=== PATIENT | male | born 2000 | race Caucasian/White ===

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

== ENCOUNTER → 2019-01-01 | Outpatient (CLI) | payer OTHER | END | disposition home or self-care (01) | LOC: WOUNDCARE 00:27 | DX: S81.011D Laceration without foreign body, right knee, subsequent encounter (principal); F17.290 Nicotine dependence, other tobacco product, uncomplicated; V86.05XD Driver of 3- or 4- wheeled all-terrain vehicle (ATV) injured in traffic accident, subsequent encounter ==

== ENCOUNTER 2019-01-18 11:09 | Emergency (ER) | payer OTHER ==
[~2019-01-18] VITALS: Ht 175.2 cm; Wt 80.7 kg
== END 2019-01-18 11:19 | disposition home or self-care (01) ==
LOC: ED 11:09
DX: S01.01XD Laceration without foreign body of scalp, subsequent encounter (principal); Z79.2 Long term (current) use of antibiotics; V84.5XXD Driver of special agricultural vehicle injured in nontraffic accident, subsequent encounter

== ENCOUNTER 2021-01-11 22:36 | Emergency (ER) | payer OTHER ==
[~2021-01-11] VITALS: Ht 175.2 cm; Wt 99.8 kg
[2021-01-11 23:18] LABS: BILIRUBIN Negative (Negative); BLOOD Negative (Negative); CLARITY Cloudy (Clear); COLOR Yellow (Yellow); GLUCOSE Negative (Negative); KETONE Trace (Negative); LEUKO ESTERASE Negative (Negative); NITRITE Negative (Negative); SPECIFIC GRAVITY 1.025 (1.001-1.030)
[2021-01-11 23:32] LABS: RBC 0-2 rbc/hpf (0-2); WBC 0-2 wbc/hpf (0-5)
== END 2021-01-11 23:56 | disposition home or self-care (01) ==
LOC: ED 22:36
PROVIDERS: Physician Assistant
DX: N48.89 Other specified disorders of penis (principal); Z79.899 Other long term (current) drug therapy

== ENCOUNTER 2022-01-22 15:15 | Emergency (ER) | payer SELFPAY ==
[~2022-01-22] VITALS: Wt 93.4 kg
[2022-01-22] MEDS ORDERED: PREDNISONE10 MG PO (15:45)
== END 2022-01-22 15:56 | disposition home or self-care (01) ==
LOC: ED 15:15
DX: L23.7 Allergic contact dermatitis due to plants, except food (principal)

== ENCOUNTER 2022-06-18 21:47 | Emergency (ER) | payer OTHER, MEDICAID ==
[~2022-06-18] VITALS: Ht 175.2 cm; Wt 99.8 kg
[~2022-06-18 21:47] MED LIST changes: +PREDNISONE10 MG PO
[2022-06-18] MEDS ORDERED: NAPROXEN250 MG PO (22:40)
== END 2022-06-18 22:49 | disposition home or self-care (01) ==
LOC: ED 21:47
DX: G89.29 Other chronic pain (principal); M25.561 Pain in right knee; M25.562 Pain in left knee

== ENCOUNTER 2022-07-23 00:05 | Emergency (ER) | payer MEDICAID ==
[~2022-07-23] VITALS: Ht 177.8 cm; Wt 95.3 kg
[~2022-07-23 00:05] MED LIST changes: +NAPROXEN250 MG PO
== END 2022-07-23 02:13 | disposition home or self-care (01) ==
LOC: ED 00:05
DX: I95.1 Orthostatic hypotension (principal); F10.90 Alcohol use, unspecified, uncomplicated

== ENCOUNTER 2022-07-24 17:02 | Emergency (ER) | payer MEDICAID ==
[~2022-07-24] VITALS: Ht 175.2 cm; Wt 102.1 kg
[2022-07-24 17:57] LABS: BASO % 0.7 % (0.0-1.0); EOS # 0.2 10*3/uL (0.0-0.4); EOS % 4.1 % (1.0-4.0); HEMATOCRIT 47.4 % (42.0-52.0); LYMPH # 1.8 10*3/uL (1.3-4.4); LYMPH % 30.8 % (27.0-41.0); MEAN CELL VOLUME 88.4 fl (80.0-94.0); MEAN CORPUSCULAR HGB 30.4 pg (27.0-31.0); MEAN CORPUSCULAR HGB CONC 34.4 g/dl (33.0-37.0); MEAN PLATELET VOLUME 9.2 fl (9.6-12.3); MONO # 0.5 10*3/uL (0.1-1.0); NEUT # 3.3 10*3/uL (2.3-7.9); NEUT % 56.2 % (47.0-73.0); PLATELET COUNT AUTOMATED 260 10*3/uL (130-400); RED BLOOD COUNT 5.36 10*6/uL (4.50-5.90); RED CELL DISTRI WIDTH 12.4 % (0-14.5); WHITE BLOOD COUNT 5.9 10*3/uL (4.8-10.8)
[2022-07-24 18:11] LABS: ALKALINE PHOSPHATASE 58 U/L (46-116); BUN 14 mg/dl (9-23); CHLORIDE 102 mmol/L (98-107); POTASSIUM 4.1 mmol/L (3.4-5.1); SGPT/ALT 78 U/L (10-49); TOTAL PROTEIN 7.5 gm/dL (6.0-8.0)
== END 2022-07-24 18:25 | disposition home or self-care (01) ==
LOC: ED 17:02
PROVIDERS: Nurse Practitioner Family
DX: I10 Essential (primary) hypertension (principal); F10.90 Alcohol use, unspecified, uncomplicated

== ENCOUNTER 2022-10-16 16:10 | Emergency (ER) | payer MEDICAID ==
[~2022-10-16] VITALS: Ht 175.2 cm; Wt 96.6 kg
[2022-10-16 16:59] LABS: BASO % 0.2 % (0.0-1.0); EOS # 0.1 10*3/uL (0.0-0.4); EOS % 1.3 % (1.0-4.0); HEMATOCRIT 48.9 % (42.0-52.0); LYMPH # 0.4 10*3/uL (1.3-4.4); LYMPH % 3.8 % (27.0-41.0); MEAN CELL VOLUME 88.6 fl (80.0-94.0); MEAN CORPUSCULAR HGB 30.6 pg (27.0-31.0); MEAN CORPUSCULAR HGB CONC 34.6 g/dl (33.0-37.0); MEAN PLATELET VOLUME 9.5 fl (9.6-12.3); MONO # 0.6 10*3/uL (0.1-1.0); MONO % 5.4 % (3.0-9.0); NEUT # 9.6 10*3/uL (2.3-7.9); NEUT % 88.9 % (47.0-73.0); PLATELET COUNT AUTOMATED 237 10*3/uL (130-400); RED BLOOD COUNT 5.52 10*6/uL (4.50-5.90); RED CELL DISTRI WIDTH 12.4 % (0-14.5); WHITE BLOOD COUNT 10.8 10*3/uL (4.8-10.8)
[2022-10-16 17:08] LABS: BILIRUBIN Negative (Negative); BLOOD Negative (Negative); CLARITY Clear (Clear); COLOR Yellow (Yellow); GLUCOSE Negative (Negative); KETONE Negative (Negative); LEUKO ESTERASE Negative (Negative); NITRITE Negative (Negative); PH 6.5 (4.5-8.0); SPECIFIC GRAVITY 1.025 (1.001-1.030)
[2022-10-16 17:16] LABS: ALKALINE PHOSPHATASE 63 U/L (46-116); BUN 10 mg/dl (9-23); CHLORIDE 103 mmol/L (98-107); LIPASE 30 U/L (12-53); SGPT/ALT 29 U/L (10-49); TOTAL PROTEIN 7.5 gm/dL (6.0-8.0)
[2022-10-16 17:26] LABS: RBC 0-2 rbc/hpf (0-2); WBC 0-2 wbc/hpf (0-5)
[2022-10-16] MEDS ORDERED: TOPCARE OMEPRAZ20 MG PO (19:41)
== END 2022-10-16 19:44 | disposition home or self-care (01) ==
LOC: ED 16:10
PROVIDERS: Physician Assistant
DX: R10.32 Left lower quadrant pain (principal); F31.9 Bipolar disorder, unspecified

== ENCOUNTER 2022-12-12 18:14 | Inpatient (IN) | payer OTHER ==
[~2022-12-12] VITALS: Ht 175.3 cm; Wt 92.1 kg
[~2022-12-12 18:14] MED LIST changes: +TOPCARE OMEPRAZ20 MG PO
[2022-12-12 18:21] VITALS: BP 135/90
[2022-12-12 18:44] LABS: BASO % 0.2 % (0.0-1.0); EOS % 0.1 % (1.0-4.0); HEMATOCRIT 46.9 % (42.0-52.0); LYMPH # 0.7 10*3/uL (1.3-4.4); LYMPH % 3.7 % (27.0-41.0); MEAN CELL VOLUME 88.8 fl (80.0-94.0); MEAN CORPUSCULAR HGB 30.7 pg (27.0-31.0); MEAN CORPUSCULAR HGB CONC 34.5 g/dl (33.0-37.0); MONO # 1.2 10*3/uL (0.1-1.0); MONO % 6.2 % (3.0-9.0); NEUT # 17.2 10*3/uL (2.3-7.9); NEUT % 89.4 % (47.0-73.0); PLATELET COUNT AUTOMATED 249 10*3/uL (130-400); RED BLOOD COUNT 5.28 10*6/uL (4.50-5.90); RED CELL DISTRI WIDTH 12.8 % (0-14.5); WHITE BLOOD COUNT 19.3 10*3/uL (4.8-10.8)
[2022-12-12 19:02] LABS: ALKALINE PHOSPHATASE 65 U/L (46-116); BUN 7 mg/dl (9-23); CHLORIDE 101 mmol/L (98-107); LIPASE 27 U/L (12-53); POTASSIUM 3.9 mmol/L (3.4-5.1); SGPT/ALT 22 U/L (10-49); TOTAL PROTEIN 7.5 gm/dL (6.0-8.0)
[2022-12-12 19:05] LABS: BILIRUBIN Negative (Negative); BLOOD Negative (Negative); CLARITY Clear (Clear); COLOR Yellow (Yellow); GLUCOSE Negative (Negative); KETONE 2+ (Negative); LEUKO ESTERASE Negative (Negative); NITRITE Negative (Negative)
[2022-12-12 19:10] LABS: BACTERIA TRACE; EPITHELIAL CELLS 0-2; RBC 0-2 rbc/hpf (0-2); WBC 0-2 wbc/hpf (0-5)
[2022-12-12 19:46] VITALS: BP 130/90
[2022-12-12 23:12] VITALS: BP 130/78
[2022-12-13] VITALS (8 sets, daily range): BP systolic 114–143; BP diastolic 63–90
[2022-12-13 07:29] LABS: BASO % 0.3 % (0.0-1.0); EOS # 0.1 10*3/uL (0.0-0.4); HEMATOCRIT 39.7 % (42.0-52.0); LYMPH # 1.5 10*3/uL (1.3-4.4); LYMPH % 11.7 % (27.0-41.0); MEAN CELL VOLUME 88.8 fl (80.0-94.0); MEAN CORPUSCULAR HGB 30.9 pg (27.0-31.0); MEAN CORPUSCULAR HGB CONC 34.8 g/dl (33.0-37.0); MEAN PLATELET VOLUME 9.6 fl (9.6-12.3); MONO # 1.2 10*3/uL (0.1-1.0); MONO % 9.6 % (3.0-9.0); NEUT # 9.7 10*3/uL (2.3-7.9); PLATELET COUNT AUTOMATED 201 10*3/uL (130-400); RED BLOOD COUNT 4.47 10*6/uL (4.50-5.90); RED CELL DISTRI WIDTH 12.8 % (0-14.5); WHITE BLOOD COUNT 12.6 10*3/uL (4.8-10.8)
[2022-12-13 08:00] LABS: ALKALINE PHOSPHATASE 50 U/L (46-116); BUN 5 mg/dl (9-23); CHLORIDE 109 mmol/L (98-107); CHOLESTEROL 97 mg/dL (<200); LDL CHOLESTEROL 53 mg/dL (9-159); POTASSIUM 3.7 mmol/L (3.4-5.1); SGPT/ALT 17 U/L (10-49); THYROID STIM HORMONE (HS) 1.077 uIU/ml (0.550-4.780); TOTAL PROTEIN 6.1 gm/dL (6.0-8.0); TRIGLYCERIDES 55 mg/dl (<150)
[2022-12-13 17:32] LABS: CSF GLUCOSE 69 mg/dL (40-80); CSF TOTAL PROTEIN 51.9 mg/dL (15-45)
[2022-12-13 17:56] LABS: CSF RBC < 1000 /uL; CSF WBC 6 /uL
[2022-12-13 19:00] LABS: CLARITY CLEAR; COLOR COLORLESS
[2022-12-13 19:04] LABS: CSF LYMPHOCYTES 75 % (40-80); CSF MONOCYTES 25 % (15-45)
[2022-12-14] VITALS: BP 135/80
[2022-12-14 08:00] VITALS: BP 111/60
[2022-12-14 09:04] LABS: BASO # 0.1 10*3/uL (0.0-0.1); BASO % 0.5 % (0.0-1.0); EOS # 0.6 10*3/uL (0.0-0.4); EOS % 5.7 % (1.0-4.0); HEMATOCRIT 44.8 % (42.0-52.0); LYMPH # 2.1 10*3/uL (1.3-4.4); LYMPH % 21.1 % (27.0-41.0); MEAN CELL VOLUME 91.4 fl (80.0-94.0); MEAN CORPUSCULAR HGB CONC 33.9 g/dl (33.0-37.0); MEAN PLATELET VOLUME 9.8 fl (9.6-12.3); MONO # 1.2 10*3/uL (0.1-1.0); MONO % 12.2 % (3.0-9.0); NEUT % 60.3 % (47.0-73.0); PLATELET COUNT AUTOMATED 226 10*3/uL (130-400); RED CELL DISTRI WIDTH 13.1 % (0-14.5); WHITE BLOOD COUNT 9.9 10*3/uL (4.8-10.8)
[2022-12-14 09:25] LABS: ALKALINE PHOSPHATASE 56 U/L (46-116); CHLORIDE 106 mmol/L (98-107); POTASSIUM 4.1 mmol/L (3.4-5.1); SGPT/ALT 23 U/L (10-49); TOTAL PROTEIN 6.9 gm/dL (6.0-8.0)
[2022-12-14 09:26] LABS: BUN < 5 mg/dl (9-23)
[2022-12-14 12:00] VITALS: BP 128/73
[2022-12-14 16:00] VITALS: BP 128/74
[2022-12-14] MEDS ORDERED: DOXYCYCLINE MO100 MG PO (17:42)
[2022-12-14 20:00] VITALS: BP 128/70
[2022-12-15] VITALS: BP 129/67
[2022-12-15 06:08] LABS: HBSAG Negative (Negative); HEP B CORE AB, IGM Negative (Negative); HEPATITIS C ANTIBODY Non Reactive (Non Reactive)
[2022-12-15 08:00] VITALS: BP 105/49
[2022-12-15 08:26] LABS: BUN 7 mg/dl (9-23); CHLORIDE 103 mmol/L (98-107); POTASSIUM 3.5 mmol/L (3.4-5.1)
== END 2022-12-15 12:15 | disposition home or self-care (01) | DRG 720 ==
LOC: ED 18:14 → 5E 12-13 01:39 → EDHOLD 12-13 01:39 → 5E 12-13 17:07
PROVIDERS: Emergency Medicine; Family Medicine; Internal Medicine Infectious Disease; Occupational Therapist; Student in an Organized Health Care Education/Training Program; ADMIT Internal Medicine; ATTEND Internal Medicine
PROC: 009U3ZX Drainage of Spinal Canal, Percutaneous Approach, Diagnostic (ICD-10-PCS; principal; 2022-12-13)
DX: A41.9 Sepsis, unspecified organism (principal); I10 Essential (primary) hypertension; Z71.6 Tobacco abuse counseling; R73.9 Hyperglycemia, unspecified; E87.1 Hypo-osmolality and hyponatremia; F17.200 Nicotine dependence, unspecified, uncomplicated; G03.9 Meningitis, unspecified

== ENCOUNTER 2023-02-23 13:51 | Emergency (ER) | payer OTHER ==
[~2023-02-23 13:51] MED LIST changes: +BACITRACIN28.4 GM TD; +CEPHALEXIN500 M1 PO; +DOXYCYCLINE MO100 MG PO; +XEROFORM PETRO1 EAC2 T
[2023-02-23] MEDS ORDERED: VIBRAMYCIN100 MG PO (14:44)
[2023-02-23 15:49] LABS: BILIRUBIN 1+ (Negative); BLOOD Negative (Negative); CLARITY Clear (Clear); COLOR Dark Yellow (Yellow); GLUCOSE Negative (Negative); KETONE Trace (Negative); LEUKO ESTERASE Negative (Negative); NITRITE Negative (Negative); PH 5.5 (4.5-8.0); SPECIFIC GRAVITY >= 1.030 (1.001-1.030)
[2023-02-23 16:02] LABS: BACTERIA TRACE; CALCIUM OXALATE CRYSTALS Trace; RBC 0-2 rbc/hpf (0-2); WBC 0-2 wbc/hpf (0-5)
== END 2023-02-23 16:20 | disposition home or self-care (01) ==
LOC: ED 13:51
PROVIDERS: Physician Assistant
DX: Z20.2 Contact with and (suspected) exposure to infections with a predominantly sexual mode of transmission (principal); R30.0 Dysuria; F90.9 Attention-deficit hyperactivity disorder, unspecified type; F31.9 Bipolar disorder, unspecified

== ENCOUNTER 2023-03-17 02:48 | Emergency (ER) | payer OTHER ==
[~2023-03-17] VITALS: Ht 175.2 cm; Wt 90.7 kg
[~2023-03-17 02:48] MED LIST changes: +VIBRAMYCIN100 MG PO
[2023-03-17] MEDS ORDERED: ZITHROMAX250 MG PO (04:25)
[2023-03-17] MEDS ORDERED: PREDNISONE20 M1 PO (04:25)
== END 2023-03-17 04:31 | disposition home or self-care (01) ==
LOC: ED 02:48
DX: J06.9 Acute upper respiratory infection, unspecified (principal); F90.9 Attention-deficit hyperactivity disorder, unspecified type; F31.9 Bipolar disorder, unspecified; F17.200 Nicotine dependence, unspecified, uncomplicated; Z20.822 Contact with and (suspected) exposure to COVID-19

== ENCOUNTER → 2023-11-21 | Outpatient (CLI) | payer OTHER ==
[~2023-11-21] MED LIST changes: +PREDNISONE20 M1 PO; +ZITHROMAX250 MG PO
[2023-11-21 13:15] LABS: BASO % 0.4 % (0.0-1.0); EOS # 0.3 10*3/uL (0.0-0.4); EOS % 3.7 % (1.0-4.0); HEMATOCRIT 48.1 % (42.0-52.0); LYMPH # 1.9 10*3/uL (1.3-4.4); LYMPH % 27.2 % (27.0-41.0); MEAN CELL VOLUME 91.8 fl (80.0-94.0); MEAN CORPUSCULAR HGB 30.9 pg (27.0-31.0); MEAN CORPUSCULAR HGB CONC 33.7 g/dl (33.0-37.0); MEAN PLATELET VOLUME 9.2 fl (9.6-12.3); MONO # 0.5 10*3/uL (0.1-1.0); MONO % 7.6 % (3.0-9.0); NEUT # 4.2 10*3/uL (2.3-7.9); NEUT % 60.8 % (47.0-73.0); PLATELET COUNT AUTOMATED 266 10*3/uL (130-400); RED BLOOD COUNT 5.24 10*6/uL (4.50-5.90); WHITE BLOOD COUNT 6.8 10*3/uL (4.8-10.8)
[2023-11-21 13:45] LABS: ALKALINE PHOSPHATASE 55 U/L (46-116); BUN 8 mg/dl (9-23); CHLORIDE 103 mmol/L (98-107); CHOLESTEROL 150 mg/dL (<200); LDL CHOLESTEROL 87 mg/dL (9-159); POTASSIUM 4.3 mmol/L (3.4-5.1); SGPT/ALT 24 U/L (5-49); TOTAL PROTEIN 7.4 gm/dL (6.0-8.0); TRIGLYCERIDES 93 mg/dl (<150)
== END ==
LOC: LAB 12:46
PROVIDERS: ATTEND Nurse Practitioner Family
DX: Z13.29 Encounter for screening for other suspected endocrine disorder (principal); I10 Essential (primary) hypertension; F31.9 Bipolar disorder, unspecified; Z13.1 Encounter for screening for diabetes mellitus

== ENCOUNTER 2023-12-08 23:04 | Emergency (ER) | payer OTHER ==
[~2023-12-08] VITALS: Ht 154.9 cm; Wt 94.3 kg
[2023-12-08 23:16] LABS: BASO % 0.3 % (0.0-1.0); EOS # 0.5 10*3/uL (0.0-0.4); EOS % 6.7 % (1.0-4.0); HEMATOCRIT 44.8 % (42.0-52.0); LYMPH # 2.5 10*3/uL (1.3-4.4); LYMPH % 33.4 % (27.0-41.0); MEAN CELL VOLUME 91.4 fl (80.0-94.0); MEAN CORPUSCULAR HGB 30.6 pg (27.0-31.0); MEAN CORPUSCULAR HGB CONC 33.5 g/dl (33.0-37.0); MEAN PLATELET VOLUME 9.6 fl (9.6-12.3); MONO # 0.7 10*3/uL (0.1-1.0); MONO % 9.6 % (3.0-9.0); NEUT # 3.7 10*3/uL (2.3-7.9); NEUT % 49.9 % (47.0-73.0); PLATELET COUNT AUTOMATED 271 10*3/uL (130-400); RED CELL DISTRI WIDTH 12.9 % (0-14.5); WHITE BLOOD COUNT 7.4 10*3/uL (4.8-10.8)
[2023-12-08] MEDS ORDERED: CYCLOBENZAPRINE10 MG PO (23:21)
[2023-12-08] MEDS ORDERED: METHOCARBAMOL500 M1 PO (23:22)
[2023-12-08 23:27] LABS: ACT PARTIAL THROMBO TIME 26.8 SECONDS (20.0-32.1)
[2023-12-08 23:35] LABS: ALKALINE PHOSPHATASE 56 U/L (46-116); BUN 10 mg/dl (9-23); CHLORIDE 107 mmol/L (98-107); POTASSIUM 3.6 mmol/L (3.4-5.1); SGPT/ALT 15 U/L (5-49); TOTAL PROTEIN 6.8 gm/dL (6.0-8.0)
[2023-12-09 00:59] LABS: BILIRUBIN Negative (Negative); BLOOD Negative (Negative); CLARITY Turbid (Clear); COLOR Yellow (Yellow); GLUCOSE Negative (Negative); KETONE Negative (Negative); LEUKO ESTERASE Negative (Negative); NITRITE Negative (Negative); PH 7.5 (4.5-8.0)
[2023-12-09 01:06] LABS: URINE AMPHETAMINES Negative (1000ng/ml); URINE BARBITURATES Negative (200ng/ml); URINE BENZODIAZEPINES Negative (200ng/ml); URINE CANNABINOIDS (THC) Negative (50ng/ml); URINE COCAINE Negative (300ng/ml); URINE METHADONE Negative (300ng/ml); URINE OPIATES Negative (300ng/ml); URINE PHENCYCLIDINE Negative (25ng/ml)
[2023-12-09 01:26] LABS: BACTERIA 1+; RBC 0-2 rbc/hpf (0-2); WBC 0-2 wbc/hpf (0-5)
== END 2023-12-09 00:57 | disposition left against medical advice (07) ==
LOC: ED 23:04
PROVIDERS: Internal Medicine
DX: R07.89 Other chest pain (principal); R42 Dizziness and giddiness; R11.0 Nausea; M79.602 Pain in left arm; F31.9 Bipolar disorder, unspecified; F90.9 Attention-deficit hyperactivity disorder, unspecified type; Z53.29 Procedure and treatment not carried out because of patient's decision for other reasons

== ENCOUNTER 2024-01-06 14:13 | Emergency (ER) | payer OTHER ==
[~2024-01-06] VITALS: Ht 175.2 cm; Wt 85.7 kg
[~2024-01-06 14:13] MED LIST changes: +CYCLOBENZAPRINE10 MG PO; +METHOCARBAMOL500 M1 PO
[2024-01-06] MEDS ORDERED: Ketorolac Tromethamine 15 MG/ML VIAL IV ONE (14:35)
[2024-01-06] MEDS ORDERED: MORPHINE Sulfate 2 MG/ML SYR IV PRN (14:35)
[2024-01-06] MEDS ORDERED: Ondansetron Hydrochloride 4 MG/2 ML VIAL IV ONE (14:35)
[2024-01-06] MEDS ORDERED: SODIUM CHLORIDE 0.9% 1,000 ML IV ONE (14:35)
[2024-01-06 14:51] LABS: BASO % 0.5 % (0.0-1.0); EOS # 0.3 10*3/uL (0.0-0.4); EOS % 5.7 % (1.0-4.0); HEMATOCRIT 47.4 % (42.0-52.0); LYMPH # 1.4 10*3/uL (1.3-4.4); MEAN CELL VOLUME 91.2 fl (80.0-94.0); MEAN CORPUSCULAR HGB 30.8 pg (27.0-31.0); MEAN CORPUSCULAR HGB CONC 33.8 g/dl (33.0-37.0); MEAN PLATELET VOLUME 9.2 fl (9.6-12.3); MONO # 0.4 10*3/uL (0.1-1.0); MONO % 7.3 % (3.0-9.0); NEUT # 3.6 10*3/uL (2.3-7.9); NEUT % 62.3 % (47.0-73.0); PLATELET COUNT AUTOMATED 274 10*3/uL (130-400); RED CELL DISTRI WIDTH 12.4 % (0-14.5); WHITE BLOOD COUNT 5.8 10*3/uL (4.8-10.8)
[2024-01-06 15:07] LABS: ALKALINE PHOSPHATASE 64 U/L (46-116); BUN 16 mg/dl (9-23); CHLORIDE 104 mmol/L (98-107); POTASSIUM 4.4 mmol/L (3.4-5.1); SGPT/ALT 23 U/L (5-49); TOTAL PROTEIN 7.8 gm/dL (6.0-8.0)
[2024-01-06 16:46] LABS: BILIRUBIN Negative (Negative); BLOOD Negative (Negative); CLARITY Clear (Clear); COLOR Yellow (Yellow); GLUCOSE Negative (Negative); KETONE 2+ (Negative); LEUKO ESTERASE Negative (Negative); NITRITE Negative (Negative); PH 5.5 (4.5-8.0); SPECIFIC GRAVITY >= 1.030 (1.001-1.030)
[2024-01-06 17:06] LABS: BACTERIA 1+; MUCOUS 2+
[2024-01-06] MEDS ORDERED: Ciprofloxacin Hydrochloride 500 MG TAB PO ONE (17:10)
[2024-01-06] MEDS ORDERED: CIPRO500 MG PO (17:12)
[2024-01-06] MEDS ORDERED: MELOXICAM15 MG PO (17:12)
== END 2024-01-06 17:13 | disposition home or self-care (01) ==
LOC: ED 14:13
PROVIDERS: Emergency Medicine
DX: N39.0 Urinary tract infection, site not specified (principal); F17.290 Nicotine dependence, other tobacco product, uncomplicated; Z79.899 Other long term (current) drug therapy

== ENCOUNTER 2024-06-13 18:47 | Emergency (ER) | payer OTHER ==
[~2024-06-13] VITALS: Ht 175.2 cm; Wt 99.8 kg
[~2024-06-13 18:47] MED LIST changes: +CIPRO500 MG PO; +MELOXICAM15 MG PO
[2024-06-13] MEDS ORDERED: ACETAMINOPHEN 325 MG TAB PO ONE (18:55)
[2024-06-13 19:08] LABS: HEMATOCRIT 47.6 % (42.0-52.0); MANUAL DIFF REFLEX YES; MEAN CELL VOLUME 89.8 fl (80.0-94.0); MEAN CORPUSCULAR HGB 30.2 pg (27.0-31.0); MEAN CORPUSCULAR HGB CONC 33.6 g/dl (33.0-37.0); MEAN PLATELET VOLUME 9.2 fl (9.6-12.3); PLATELET COUNT AUTOMATED 250 10*3/uL (130-400); RED CELL DISTRI WIDTH 12.3 % (0-14.5); WHITE BLOOD COUNT 12.7 10*3/uL (4.8-10.8)
[2024-06-13 19:24] LABS: ALKALINE PHOSPHATASE 62 U/L (46-116); BUN 13 mg/dl (9-23); CHLORIDE 106 mmol/L (98-107); LIPASE 32 U/L (12-53); POTASSIUM 3.9 mmol/L (3.4-5.1); SGPT/ALT 26 U/L (5-49); TOTAL PROTEIN 7.3 gm/dL (6.0-8.0)
[2024-06-13 19:29] LABS: TOTAL CELLS COUNTED 100 #CELLS
[2024-06-13] MEDS ORDERED: Ondansetron Hydrochloride 4 MG/2 ML VIAL IV ONE (19:35)
[2024-06-13 20:16] LABS: PLATELET SUFFICIENCY NORMAL (NORMAL)
[2024-06-13 20:22] LABS: BILIRUBIN Negative (Negative); BLOOD Negative (Negative); CLARITY Clear (Clear); COLOR Yellow (Yellow); GLUCOSE Negative (Negative); KETONE 1+ (Negative); LEUKO ESTERASE Negative (Negative); NITRITE Negative (Negative); SPECIFIC GRAVITY 1.025 (1.001-1.030); UROBILINOGEN 0.2 E.U./dl (0.0-1.0)
[2024-06-13 20:32] LABS: MUCOUS TRACE; RBC 0-2 rbc/hpf (0-2); WBC 0-2 wbc/hpf (0-5)
[2024-06-13] MEDS ORDERED: diphenhydrAMINE hydrochloride 50 MG/ML VIAL IV ONE (20:40)
[2024-06-13] MEDS ORDERED: Metoclopramide Hydrochloride 10 MG/2 ML VIAL IV ONE (20:40)
[2024-06-13] MEDS ORDERED: SODIUM CHLORIDE 0.9% 1,000 ML IV ONE (21:05)
[2024-06-13] MEDS ORDERED: METOCLOPRAMIDE5 MG PO (21:50)
== END 2024-06-13 21:52 | disposition home or self-care (01) ==
LOC: ED 18:47
PROVIDERS: Physician Assistant Medical
DX: B34.9 Viral infection, unspecified (principal); Z20.822 Contact with and (suspected) exposure to COVID-19; R11.2 Nausea with vomiting, unspecified; R19.7 Diarrhea, unspecified; R10.13 Epigastric pain; I10 Essential (primary) hypertension; F90.9 Attention-deficit hyperactivity disorder, unspecified type; F31.9 Bipolar disorder, unspecified; F17.290 Nicotine dependence, other tobacco product, uncomplicated

== ENCOUNTER 2024-12-31 17:21 | Emergency (ER) | payer OTHER ==
[~2024-12-31] VITALS: Wt 68.0 kg
[~2024-12-31 17:21] MED LIST changes: +METOCLOPRAMIDE5 MG PO
[2024-12-31] MEDS ORDERED: NEURONTIN300 MG PO (17:51)
[2024-12-31] MEDS ORDERED: Acetaminophen/Oxycodone 5 MG/325 MG TABLET PO ONE (18:05)
[2024-12-31] MEDS ORDERED: NAPROSYN500 MG PO (21:11)
[2024-12-31] MEDS ORDERED: Ketorolac Tromethamine 60 MG/2 ML VIAL IM ONE (21:15)
== END 2024-12-31 21:32 | disposition home or self-care (01) ==
LOC: ED 17:21
DX: S93.401A Sprain of unspecified ligament of right ankle, initial encounter (principal); S90.31XA Contusion of right foot, initial encounter; F31.9 Bipolar disorder, unspecified; F90.9 Attention-deficit hyperactivity disorder, unspecified type; I10 Essential (primary) hypertension; Z88.8 Allergy status to other drugs, medicaments and biological substances; Z79.899 Other long term (current) drug therapy; W18.09XA Striking against other object with subsequent fall, initial encounter; Y93.89 Activity, other specified; Y92.89 Other specified places as the place of occurrence of the external cause; Y99.8 Other external cause status